=== PATIENT | female | born 1975 | race Two or more races ===

== ENCOUNTER 2017-09-30 04:41 | Inpatient (IN) | payer OTHER ==
[~2017-09-30] VITALS: Ht 160 cm; Wt 106.6 kg
[~2017-09-30 04:41] MED LIST: SYNTHROID75 MCG
[2017-09-30] MEDS ORDERED: GEMFIBROZIL600 MG (05:00)
[2017-10-03] MEDS ORDERED: CIPRO500 MG PO (08:22)
[2017-10-03] MEDS ORDERED: FLAGYL500MG PO (08:22)
[2017-10-03] MEDS ORDERED: OMEPRAZOLE20 M1 PO (08:22)
== END 2017-10-03 11:36 | disposition home or self-care (01) | DRG 391 ==
LOC: ER 04:41 → SURG 10:35 → SEC-K 10:35 → SURG 10-01 20:46
PROC: BW21YZZ Computerized Tomography (CT Scan) of Abdomen and Pelvis using Other Contrast (ICD-10-PCS; principal; 2017-09-30)
PROC: 3E0336Z Introduction of Nutritional Substance into Peripheral Vein, Percutaneous Approach (ICD-10-PCS; 2017-10-01)
DX: K57.20 Diverticulitis of large intestine with perforation and abscess without bleeding (principal); A41.9 Sepsis, unspecified organism; K29.00 Acute gastritis without bleeding

== ENCOUNTER 2017-12-15 16:46 | Inpatient (IN) | payer OTHER ==
[~2017-12-15] VITALS: Ht 162.6 cm; Wt 104.3 kg
[~2017-12-15 16:46] MED LIST changes: +CIPRO500 MG PO; +FLAGYL500MG PO; +GEMFIBROZIL600 MG; +OMEPRAZOLE20 M1 PO
[2017-12-21] MEDS ORDERED: INTESTINEX680 M1 PO (16:35)
[2017-12-21] MEDS ORDERED: AMOX1TAB5 PO (16:35)
[2017-12-21] MEDS ORDERED: PROTONIX40 MG PO (16:36)
[2017-12-21] MEDS ORDERED: FLAGYL500MG PO (16:36)
== END 2017-12-21 16:46 | disposition home or self-care (01) | DRG 392 ==
LOC: ER 16:46 → MEDJ 12-16 09:57
PROC: 3E0336Z Introduction of Nutritional Substance into Peripheral Vein, Percutaneous Approach (ICD-10-PCS; principal; 2017-12-16)
DX: K57.32 Diverticulitis of large intestine without perforation or abscess without bleeding (principal); N39.0 Urinary tract infection, site not specified; B37.49 Other urogenital candidiasis; K29.00 Acute gastritis without bleeding; B96.29 Other Escherichia coli [E. coli] as the cause of diseases classified elsewhere

== ENCOUNTER 2018-05-23 21:16 | Emergency (ER) | payer OTHER ==
[~2018-05-23] VITALS: Ht 157.5 cm; Wt 96.6 kg
[~2018-05-23 21:16] MED LIST changes: +AMOX1TAB5 PO; +INTESTINEX680 M1 PO; +PROTONIX40 MG PO
[2018-05-23] MEDS ORDERED: PROBIOTIC1 EAC4 (21:24)
== END 2018-05-23 22:51 | disposition home or self-care (01) ==
LOC: ER 21:16
DX: J02.9 Acute pharyngitis, unspecified (principal)

== ENCOUNTER → 2020-09-30 | Emergency (ER) | payer OTHER ==
[~2020-09-30] VITALS: Ht 157.5 cm; Wt 106.6 kg
[~2020-09-30] MED LIST changes: +PROBIOTIC1 EAC4
== END | disposition left against medical advice (07) ==
LOC: ER 12:02
DX: R10.12 Left upper quadrant pain (principal); K57.32 Diverticulitis of large intestine without perforation or abscess without bleeding

== ENCOUNTER 2021-11-24 19:00 | Emergency (ER) | payer OTHER ==
[~2021-11-24] VITALS: Ht 165.1 cm; Wt 104.3 kg
[2021-11-24] MEDS ORDERED: FLEXGEN TABLET1 EACH (19:10)
== END 2021-11-24 20:09 | disposition home or self-care (01) ==
LOC: ER 19:00
DX: R10.84 Generalized abdominal pain (principal)

== ENCOUNTER 2023-06-23 15:50 | Emergency (ER) | payer OTHER ==
[~2023-06-23] VITALS: Ht 167.6 cm; Wt 102.1 kg
[~2023-06-23 15:50] MED LIST changes: +FLEXGEN TABLET1 EACH
[2023-06-23] MEDS ORDERED: NABUMETONE750 MG PO (21:44)
[2023-06-23] MEDS ORDERED: NORFLEX100MG PO (21:44)
== END 2023-06-23 21:50 | disposition home or self-care (01) ==
LOC: ER 15:51
DX: M54.50 Low back pain, unspecified (principal)